=== PATIENT | male | born 1970 | race Caucasian/White ===

== ENCOUNTER 2016-09-19 16:21 | Emergency (ER) | payer MEDICAID ==
[~2016-09-19] VITALS: Ht 182.9 cm; Wt 72.6 kg
[~2016-09-19 16:21] MED LIST: CIPRO 500MG TA500 MG PO; ETODOLAC400 MG PO; FLEXERIL10 MG PO; KEFLEX 500MG.500 MG PO; LORTAB 5/500 501 TAB PO; NAPROXEN SODIU500 MG PO; NOMEDS XX; TAMIFLU 75MG CA75 MG PO; ULTRAM 50 MG TA50 MG PO
--- OUTSIDE RECORDS SUMMARY | 2016-09-19 16:40 | External Medical Summary Rpt ---
Author Author , Organization [employer] Address Unknown Phone Unavailable Care Team Providers Care Shank Tapper Name Role Phone YASMIN ESCOBEDO Unavailable Unavailable MARIA ESTHER YASMIN MAYO, YASMIN Unavailable Unavailable MARIA ESTHER GISSEL RUIZ, GISSEL Unavailable Unavailable SARA RUIZ, GISSEL Unavailable Unavailable [facility] Unavailable Unavailable SERVICE, [facility] Unavailable Unavailable SERVICE, [facility]available Unavailable CONSULTANTS O, [facility], Unavailable Unavailable [facility], Unavailable Unavailable [facility], Unavailable Unavailable [facility] [place]available [place]available [place], [facility] [place] CHAVEZ DEMI, BYRNE DEMI Unavailable Unavailable [facility] Unavailable Unavailable INC, [facility] Unavailable Unavailable [facility]ING [facility], [facility] Unavailable Unavailable SERVICES, [facility] SCIFRES ANG, SCIFRES Unavailable Unavailable ANG SCIFRES ANG, SCIFRES Unavailable Unavailable ANG MARCO MAT, Unavailable Unavailable [facility] Purpose Continuity of Care Document - 06-26-2010 through 2016 Problems Code Diagnosis DOS Provider Status I10 ESSENTIAL 07-04-2016 [facility] HYPERTENSIO INC N J101 FLU D/T OTH 07-04-2016 [facility] VIRUS OT INC RESP MANIFESTATI ONS Z720 TOBACCO USE 07-04-2016 [facility] INC 5290 GLOSSITIS 09-08-2014 YASMIN MAYO V154 PERS HX 09-05-2014 [facility] AL TRAUMA PRS [facility] 4111 INTERMEDIAT 08-19-2014 C[facility] E CORONARY L[place] [facility] [place] 93448 CHEST PAIN 08-18-2014 YASMIN MAYO UNSPECIFIED 3671 MYOPIA 07-04-2014 SCIFRES ANG 4019 UNSPECIFIED 08-28-2013 GISSEL RUIZ ESSENTIAL HYPERTENSIO N 70655 PAIN IN 08-28-2013 [facility] REGION AND THIGH 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 7245 UNSPECIFIED 08-28-2013 [facility] 67295 GENERALIZED 08-28-2013 [facility] 7905 OTHER 08-28-2013 GISSEL RUIZ NONSPECIFIC ABNORMAL SERUM ENZYME LEVELS 7936 NONSPEC ABN 08-28-2013 [place] FINDNG RAD MEDICAL & OTH EXAM IMAGING ASS ABDOMINAL AREA 8054 CLOS FX 08-28-2013 [place] L[facility]B [facility] VERTEBRA IMAGING ASS W/O MENTION SP CORD INJURY 9599 INJURY 08-28-2013 [place] OTHER AND MEDICAL UNSPECIFIED IMAGING ASS UNSPECIFIED SITE E8859 FALL FROM 08-28-2013 GISSEL RUIZ OTHER SLIPPING TRIPPING OR STUMBLING E8889 UNSPECIFIED 08-28-2013 [facility] 44959 CLOSED 07-14-2011 YASMIN MARIA ESTHER FRACTURE OF UNSPECIFIED BONE OF FOOT 9982 ACCIDENTAL 11-03-2010 YASMIN MARIA ESTHER PUNCTURE/LA CERATION DURING PROC NEC 92879 OPEN WOUND 10-15-2010 [facility] WITHOUT SERVICES MENTION COMPLICATIO N 9593 INJURY 10-15-2010 [place] OTHER&UNSPE MEDICAL CIFIED IMAGING ASS [facility]&WRI ST 496 CHRONIC 06-26-2010 [place] AIRWAY MEDICAL OBSTRUCTION IMAGING ASS NEC 45370 PAIN IN 06-26-2010 [place] JOINT, MEDICAL ANKLE AND IMAGING ASS FOOT Medications Na ND Rx Da Fi Fi Am Da Di Ph RX Ph St me C No te ll ll ou ys ag ar # ys at rm s nt no ma ic us Or Da si cy ia de te s n re d AM 00 06 06 1 20 10 EA 22 AR Ac OX 09 -1 -1 .0 94 NO ti -C 32 5 5 00 SI 38 LD ve LA 27 20 20 DE V 53 11 11 RI 87 4 PH CH 5- AR AR 12 MA D 5 CY W MG OF TA BL CY ET NT HI AN A DI 00 06 06 1 40 14 EA 22 AR Ac CL 78 -1 -[address] 94 NO ti OF 11 5- 5 00 SI 37 LD ve EN 78 20 20 DE AC 70 11 11 RI 1 PH CH SO AR AR D MA D DR CY W 50 OF MG CY NT TA HI B AN A MU 45 06 06 1 22 3 EA 22 AR Ac PI 80 -1 -1 .0 94 NO ti RO 20 5 5 00 SI 36 LD ve CI 11 20 20 DE N 22 11 11 RI 2% 2 PH CH AR AR OI MA D NT CY W ME NT OF CY NT HI AN A CI 16 06 06 0 14 7 EA 22 GR Ac WY 71 -1 -[address] 89 AY ti OF 40 0- 0- 00 SI 01 ve LO 65 20 20 DE RO XA 20 11 11 BE CI 4 PH RT N AR B HC MA L CY 50 0 OF MG CY TA NT B HI AN A 00 06 06 0 12 2 EA 22 GR Ac 59 -1 -[address] 89 AY ti 10 0- 0- 00 SI 00 ve 34 20 20 DE RO 90 11 11 BE 1 PH RT AR B MA CY OF CY NT HI AN A Procedures Procedure DOS Code Location Performer Comment ECG 56203 [facility] ROUTINE 5 CULAR MAT ECG CONSULTAN W/LEAST TS O 12 LDS I&R ONLY OPHTH 72287 SCIFRES SCIFRES MEDICAL 5 ANG ANG XM&EVAL COMPRE NEW PT 1/> [place] [address] [place] [facility] ABDOMEN & 4 MEDICAL JASPER PELVIS IMAGING W/O ASS CONTRAST MATERIAL GROUND A0425 [facility]UL[facility] PER SERVICE SERVICE STATUTE MILE AMBULANCE A0429 [facility] SERVICE 4 AMBULANCE AMBULANCE BLS SERVICE SERVICE EMERGENCY TRANSPORT RADIOLOGI 87704 [place] M[facility] C 4 MEDICAL JASPER EXAMINATI IMAGING ON PELVIS ASS 1/2 VIEWS ECG 38477 [facility] ROUTINE 4 BRO BRO ECG W/LEAST 12 LDS I&R ONLY 3D 85838 [facility] 4 MEDICAL JASPER IMAGING W/INTERP& ASS POSTPROC DIFF WORK STATION RADEX HIP 15786 PSYCHIATRIC 4 MEDICAL JASPER UNILATERA IMAGING L ASS COMPLETE MINIMUM 2 VIEWS CLOSURE 8659 [facility] SKIN&SUBC 1 [facility] UTANEOUS INC INC TISSUE OTHER SITES SMPL RPR 71982 [facility] SCALP/NEC 1 EMERGENCY K/AX/ISAAK SERVICES T/TRUNK 12.6-20.0 CM RADEX 15004 [place] [facility] 2 1 [place]ICAL [place] [address] [facility] THERAPY/P INC INC ROPHYLAXI S /DX 1ST TO 1 HR RADIOLOGI 10782 [facility] C 1 MEDICAL JASPER EXAMINATI IMAGING ON CHEST ASS SINGLE VIEW FRONTAL RADEX 66230 [facility] FOOT 1 MEDICAL JASPER COMPLETE IMAGING MINIMUM 3 ASS VIEWS Encounters Encounter Start End Date Code Location Performer Type Date [facility] - 7 7 [facility] OUTPATIEN INC T EMERGENCY 56126 [facility] 7 7 [facility] DEPARTMEN INC T VISIT LOW/MODER SEVERITY OFFICE 00853 YASMIN WATTSEN 5 5 MARIA ESTHER MARIA ESTHER T VISIT 15 MINUTES OFFICE 07296 [facility] 5 5 CULAR MAT T NEW 60 CONSULTAN MINUTES TS O OFFICE 87865 YASMIN WATTSEN 5 5 MARIA ESTHER MARIA ESTHER T VISIT 15 MINUTES EMERGENCY 09113 [facility] DEPT 4 4 BRO BRO VISIT HIGH SEVERITY& THREAT FUNJ OFFICE 22566 YASMIN CABRERA 2 2 MARIA ESTHER MARIA ESTHER T VISIT 15 MINUTES OFFICE 85043 YASMIN CABRERA 1 1 MARIA ESTHER MARIA ESTHER T VISIT 25 MINUTES OFFICE 56268 YASMIN CABRERA 1 1 MARIA ESTHER MARIA ESTHER T NEW 30 MINUTES [facility] - [facility] OUTPATIEN INC T EMERGENCY 37364 [facility] 1 1 [facility] DEPARTMEN INC T VISIT MODERATE SEVERITY EMERGENCY 63313 [facility] 1 1 EMERGENCY DEPARTMEN SERVICES T VISIT HIGH/URGE NT SEVERITY
--- OUTSIDE RECORDS SUMMARY | 2016-09-19 16:40 | External Medical Summary Rpt ---
Author Author , Organization [employer] Address Unknown Phone Unavailable Care Team Providers Care Junior Systems Analyst Name Role Phone YASMIN ESCOBEDO Unavailable Unavailable MARIA ESTHER YASMIN MAYO, YASMIN Unavailable Unavailable MARIA ESTHER GISSEL RUIZ, GISSEL Unavailable Unavailable SARA RUIZ, GISSEL Unavailable Unavailable [facility] Unavailable Unavailable SERVICE, [facility] Unavailable Unavailable SERVICE, [facility]ARDI[facility]ASCULAR Unavailable Unavailable CONSULTANTS O, [facility], Unavailable Unavailable [facility], Unavailable Unavailable [facility], Unavailable Unavailable [facility]IAL [facility] Unavailable Unavailable [place], [facility] [place] CHAVEZ DEMI, BYRNE DEMI Unavailable Unavailable [facility] Unavailable Unavailable INC, [facility] Unavailable Unavailable IM[facility]ING [facility], [facility] Unavailable Unavailable SERVICES, [facility] SCIFRES ANG, SCIFRES Unavailable Unavailable ANG SCIFRES ANG, SCIFRES Unavailable Unavailable ANG MARCO MAT, Unavailable Unavailable [facility] Purpose Continuity of Care Document - 06-26-2010 through 2016 Problems Code Diagnosis DOS Provider Status I10 ESSENTIAL 07-04-2016 [facility] HYPERTENSI[facility] INC N J101 FLU D/T OTH 07-04-2016 [facility] VIRUS OT INC RESP MANIFESTATI ONS Z720 TOBACCO USE 07-04-2016 [facility] 5290 GLOSSITIS 09-08-2014 YASMIN MAYO V154 PERS HX 09-05-2014 DEPT FOR PSYCHOLOGIC PUBLIC [facility] AL TRAUMA PRS [facility] 4111 INTERMEDIAT 08-19-2014 CARDIOVASCU E CORONARY [place] [facility] [place] 73346 CHEST PAIN 08-18-2014 YASMIN MAYO UNSPECIFIED 3671 MYOPIA 07-04-2014 SCIFRES ANG 4019 UNSPECIFIED 08-28-2013 GISSEL RUIZ ESSENTIAL HYPERTENSIO N 92247 PAIN IN 08-28-2013 [place] [facility] REGION AND THIGH 15801 DEGEN 08-28-2013 [place] 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 7245 UNSPECIFIED 08-28-2013 [facility] 34691 GENERALIZED 08-28-2013 [facility] [facility] 7905 OTHER 08-28-2013 GISSEL RUIZ NONSPECIFIC ABNORMAL SERUM ENZYME LEVELS 7936 NONSPEC ABN 08-28-2013 [place] FINDNG RAD MEDICAL & OTH EXAM IMAGING ASS ABDOMINAL AREA 8054 CLOS FX 08-28-2013 [place] L[facility] VERTEBRA IM[facility]ING ASS W/O MENTION SP CORD INJURY 9599 INJURY 08-28-2013 [place] OTHER AND MEDICAL UNSPECIFIED IMAGING ASS UNSPECIFIED SITE E8859 FALL FROM 08-28-2013 GISSEL RUIZ OTHER SLIPPING TRIPPING OR STUMBLING E8889 UNSPECIFIED 08-28-2013 [facility] 53315 CLOSED 07-14-2011 YASMIN MARIA ESTHER FRACTURE OF UNSPECIFIED BONE OF FOOT 9982 ACCIDENTAL 11-03-2010 YASMIN MARIA ESTHER PUNCTURE/LA CERATION DURING [place] NEC 84733 OPEN WOUND 10-15-2010 [facility] WITHOUT SERVICES MENTION COMPLICATIO N 9593 INJURY 10-15-2010 [place] OTHER&UNSPE MEDICAL CIFIED IMAGING ASS [facility]&WRI ST 496 CHRONIC 06-26-2010 [place] AIRWAY MEDICAL OBSTRUCTION IMAGING ASS NEC 46400 PAIN IN 06-26-2010 [place] JOINT, MEDICAL ANKLE AND IMAGING ASS FOOT [...] 0 14 7 EA 22 GR Ac ID [id number] -[address] 89 AY [...] Procedure DOS Code Location Performer Comment ECG 95401 [facility] ROUTINE 5 CULAR MAT ECG CONSULTAN W/LEAST TS O 12 LDS I&R ONLY OPHTH 68712 SCIFRES SCIFRES MEDICAL 5 ANG ANG XM&EVAL COMPRE NEW PT 1/> V[place] [address] [place] [facility]IS ABDOMEN & 4 MEDICAL JASPER PELVIS IMAGING W/O ASS CONTRAST MATERIAL GROUND A0425 [facility]EAGE 4 AMBULANCE AMBULANCE PER SERVICE SERVICE STATUTE MILE AMBULANCE A0429 [facility] SERVICE 4 AMBULANCE AMBULANCE BLS SERVICE SERVICE EMERGENCY TRANSPORT RADIOLOGI 62296 [place] MIS C 4 MEDICAL JASPER EXAMINATI IMAGING ON PELVIS ASS 1/2 VIEWS ECG 52683 [facility] ROUTINE 4 BRO BRO ECG W/LEAST 12 LDS I&R ONLY 3D 45608 [facility] RENDERING 4 MEDICAL JASPER IMAGING W/INTERP& ASS POSTPROC DIFF WORK STATION RADEX HIP 40279 [facility] 4 MEDICAL JASPER UNILATERA IMAGING L ASS COMPLETE MINIMUM 2 VIEWS CLOSURE 8659 [facility] SKIN&SUBC 1 [facility] UTANEOUS INC INC TISSUE OTHER SITES SMPL RPR 86813 [facility] SCALP/NEC 1 EMERGENCY K/AX/ISAAK SERVICES T/TRUNK 12.6-20.0 CM RADEX 03299 [place] [facility] 2 1 [place]ICAL [place] [address] [facility] THERAPY/P INC INC ROPHYLAXI S /DX 1ST TO 1 HR RADIOLOGI 29881 [facility] C 1 MEDICAL JASPER EXAMINATI IMAGING ON CHEST ASS SINGLE VIEW FRONTAL RADEX 31929 [facility] FOOT 1 MEDICAL JASPER COMPLETE IMAGING MINIMUM 3 ASS VIEWS Encounters Encounter Start End Date Code Location Performer Type Date [facility] - 7 7 [facility] OUTPATIEN INC T EMERGENCY 70968 [facility] 7 7 [facility] DEPARTMEN INC T VISIT LOW/MODER SEVERITY OFFICE 79596 YASMIN WATTSEN 5 5 MARIA ESTHER MARIA ESTHER T VISIT 15 MINUTES OFFICE 25486 [facility] 5 5 CULAR MAT T NEW 60 CONSULTAN MINUTES TS O OFFICE 33485 YASMIN WATTSEN 5 5 MARIA ESTHER MARIA ESTHER T VISIT 15 MINUTES EMERGENCY 13260 [facility] DEPT 4 4 BRO BRO VISIT HIGH SEVERITY& THREAT FUNJ OFFICE 03645 YASMIN CABRERA 2 2 MARIA ESTHER MARIA ESTHER T VISIT 15 MINUTES OFFICE 93984 YASMIN CABRERA 1 1 MARIA ESTHER MARIA ESTHER T VISIT 25 MINUTES OFFICE 96923 YASMIN CABRERA 1 1 MARIA ESTHER MARIA ESTHER T NEW 30 MINUTES [facility]OSPITAL [facility] - 1 1 [facility] OUTPATIEN INC T EMERGENCY 42378 [facility] 1 1 [facility] DEPARTMEN INC T VISIT MODERATE SEVERITY EMERGENCY 48888 [facility] 1 1 EMERGENCY DEPARTMEN SERVICES T VISIT HIGH/URGE NT SEVERITY
--- OUTSIDE RECORDS SUMMARY | 2016-09-19 16:41 | External Medical Summary Rpt ---
Demographics Preferred Language Barbadian Marital Status Unknown Evangelical Affiliation Unknown Race Unknown Ethnic Group Unknown Author Author , Organization [employer] Address Unknown Phone Unavailable Purpose Continuity of Care Document - through 2016 Immunization No patient found.
--- OUTSIDE RECORDS SUMMARY | 2016-09-19 16:41 | External Medical Summary Rpt ---
Author Author [employer] [facility], [employer] Organization [employer] Address Unknown Phone Unavailable
--- OUTSIDE RECORDS SUMMARY | 2016-09-19 16:41 | External Medical Summary Rpt ---
Author Author , Organization [employer] Address Unknown Phone Unavailable Care Team Providers Care Billet Straightener Name Role Phone YASMIN ESCOBEDO Unavailable Unavailable MARIA ESTHER YASMIN ESCOBEDO Unavailable Unavailable MARIA ESTHER [facility]QUE[facility] Unavailable Unavailable [facility] GLEZ Unavailable Unavailable [facility] Unavailable Unavailable SERVICE, [facility] Unavailable Unavailable SERVICE, [facility]ULAR Unavailable Unavailable CONSULTANTS O, [facility], Unavailable Unavailable [facility], Unavailable Unavailable [facility] PUBLIC [facility] DEPT FOR [facility]IAL [facility], Unavailable Unavailable DEPT FOR SOCIAL SR[facility] Unavailable Unavailable [place], [facility] [place] CHAVEZ DEMI, CHAVEZ DEMI Unavailable Unavailable [facility] Unavailable Unavailable INC, [facility] Unavailable Unavailable IMAGING [facility], [facility] Unavailable Unavailable SERVICES, [facility] SCIFRES ANG, SCIFRES Unavailable Unavailable ANG SCIFRES ANG, SCIFRES Unavailable Unavailable ANG MARCO MAT, Unavailable Unavailable [facility] Purpose Continuity of Care Document - 06-26-2010 through 2016 Problems Code Diagnosis DOS Provider Status I10 ESSENTIAL 07-04-2016 [facility] HYPERTENSI[facility] INC N J101 FLU D/T OTH 07-04-2016 [place] ID [facility]U [facility] VIRUS OT INC RESP MANIFESTATI ONS Z720 TOBACCO USE 07-04-2016 [facility] INC 5290 GLOSSITIS 09-08-2014 YASMIN MAYO V154 PERS HX 09-05-2014 DEPT FOR PSYCHOLOGIC PUBLIC HLTH AL TRAUMA PRS [facility] 4111 INTERMEDIAT 08-19-2014 CARDIOVASCU E CORONARY L[place] [facility] O 57566 CHEST PAIN 08-18-2014 YASMIN MAYO UNSPECIFIED 3671 MYOPIA 07-04-2014 SCIFRES ANG 4019 UNSPECIFIED 08-28-2013 GISSEL RUIZ ESSENTIAL HYPERTENSIO N 68138 PAIN IN 08-28-2013 [facility] REGION AND THIGH 00050 DEGEN 08-28-2013 [place] 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 7245 UNSPECIFIED 08-28-2013 [facility] 02908 GENERALIZED 08-28-2013 [facility] [facility] 7905 OTHER 08-28-2013 GISSEL RUIZ NONSPECIFIC ABNORMAL SERUM ENZYME LEVELS 7936 NONSPEC ABN 08-28-2013 [place] FINDNG RAD MEDICAL & OTH EXAM IMAGING ASS ABDOMINAL AREA 8054 CLOS FX 08-28-2013 [place] LUM[facility] VERTEBRA IM[facility]ING ASS W/O MENTION SP CORD INJURY 9599 INJURY 08-28-2013 [place] OTHER AND MEDICAL UNSPECIFIED IMAGING ASS UNSPECIFIED SITE E8859 FALL FROM 08-28-2013 GISSEL RUIZ OTHER SLIPPING TRIPPING OR STUMBLING E8889 UNSPECIFIED 08-28-2013 [facility] [facility] 95552 CLOSED 07-14-2011 YASMIN MARIA ESTHER FRACTURE OF UNSPECIFIED BONE OF FOOT 9982 ACCIDENTAL 11-03-2010 YASMIN MARIA ESTHER PUNCTURE/LA CERATION DURING PROC NEC 95337 OPEN WOUND 10-15-2010 [facility] WITHOUT SERVICES MENTION COMPLICATIO N 9593 INJURY 10-15-2010 [place] OTHER&UNSPE MEDICAL CIFIED IMAGING ASS [facility]&WRI ST 496 CHRONIC 06-26-2010 [place] AIRWAY MEDICAL OBSTRUCTION IMAGING ASS [place] 84844 PAIN IN 06-26-2010 [place] JOINT, MEDICAL ANKLE AND IMAGING ASS FOOT Medications Na ND Rx Da Fi Fi Am Da Di Ph RX Ph St me C No te ll ll ou ys ag ar # ys at rm s nt no ma ic us Or Da si cy ia de te s n re d MU 45 06 06 1 22 3 EA 22 AR Ac PI 80 -1 -[address] 94 NO ti RO 20 5 5 00 SI 36 LD ve CI 11 20 20 DE N 22 11 11 RI 2% 2 PH CH AR AR OI MA D NT CY W ME NT OF CY NT HI AN A DI 00 06 06 1 40 14 EA 22 AR Ac CL 78 -1 -[address] 94 NO ti OF 11 00 SI 37 LD ve EN 78 20 20 DE AC 70 11 11 RI 1 PH CH SO AR AR D MA D DR CY W 50 OF MG CY NT TA HI B AN A AM 00 06 06 1 20 10 EA 22 AR Ac OX 09 -1 -[address] 94 NO ti -C 32 5 SI 38 LD ve LA 27 20 20 DE V 53 11 11 RI 87 4 PH CH 5- AR AR 12 MA D 5 CY W MG OF TA BL CY ET NT HI AN A 00 06 06 0 12 2 EA 22 GR Ac 59 -1 -[address] 89 AY ti 10 0- 0- 00 SI 00 ve 34 20 20 DE RO 90 11 11 BE 1 PH RT AR B MA CY OF CY NT HI AN A CI 16 06 06 0 14 7 EA 22 GR Ac DE 71 -1 -[address] 89 AY ti OF 40 0- 0- 00 SI 01 ve LO 65 20 20 DE RO XA 20 11 11 BE CI 4 PH RT N AR B HC MA L CY 50 0 OF MG CY TA NT B HI AN A Procedures Procedure DOS Code Location Performer Comment ECG 80515 [facility] ROUTINE 5 CULAR MAT ECG CONSULTAN W/LEAST TS O 12 LDS I&R ONLY OPHTH 02130 SCIFRES SCIFRES MEDICAL 5 ANG ANG XM&EVAL COMPRE NEW PT 1/> VST RADEX HIP 34566 [facility] 4 MEDICAL JASPER UNILATERA IMAGING L ASS COMPLETE MINIMUM [address] [facility] ROUTINE 4 BRO BRO ECG W/LEAST 12 LDS I&R ONLY 3D 05050 [facility] RENDERING 4 MEDICAL JASPER IMAGING W/INTERP& ASS POSTPROC DIFF WORK STATION RADIOLOGI 56434 [facility] C 4 MEDICAL JASPER EXAMINATI IMAGING ON PELVIS ASS 1/2 VIEWS GROUND A0425 [facility] 4 AMBULANCE AMBULANCE PER SERVICE SERVICE STATUTE MILE AMBULANCE A0429 [facility] SERVICE 4 AMBULANCE AMBULANCE BLS [place] [address] [facility] & 4 MEDICAL JASPER PELVIS IMAGING W/O ASS CONTRAST MATERIAL CLOSURE 8659 [facility] SKIN&SUBC 1 [facility] [place] [address] [facility] INF[facility]ION [facility] THERAPY/P INC INC ROPHYLAXI S /DX 1ST TO 1 HR SMPL RPR 32702 [facility] SCALP/NEC 1 EMERGENCY K/AX/ISAAK SERVICES T/TRUNK 12.6-20.0 CM RADEX 07049 [facility] 2 1 MEDICAL JASPER VIEWS IMAGING ASS RADEX 41280 [facility] FOOT 1 MEDICAL JASPER COMPLETE IMAGING MINIMUM 3 ASS VIEWS RADIOLOGI 63126 [facility] C 1 MEDICAL JASPER EXAMINATI IMAGING ON CHEST ASS SINGLE VIEW FRONTAL Encounters Encounter Start End Date Code Location Performer Type Date [facility] - 7 7 [facility] OUTPATIEN INC T EMERGENCY 88295 [facility] 7 7 [facility] INC T VISIT LOW/MODER SEVERITY OFFICE 06204 YASMIN CABRERA 5 5 MARIA ESTHER MARIA ESTHER T VISIT 15 MINUTES OFFICE 71914 [facility]IKEN[facility]ATTA 5 5 CULAR MAT T NEW 60 CONSULTAN MINUTES TS O OFFICE 77176 YASMIN CABRERA 5 5 MARIA ESTHER MARIA ESTHER T VISIT [address] [facility] DEPT 4 4 BRO BRO VISIT HIGH SEVERITY& THREAT FUNCJ OFFICE 70806 YASMIN CABRERA 2 2 MARIA ESTHER MARIA ESTHER T VISIT 15 MINUTES OFFICE 16128 YASMIN CABRERA 1 1 MARIA ESTHER MARIA ESTHER T VISIT 25 MINUTES OFFICE 01252 YASMIN CABRERA 1 1 MARIA ESTHER MARIA ESTHER T NEW 30 MINUTES EMERGENCY 05394 [facility] 1 1 EMERGENCY DEPARTMEN SERVICES T VISIT HIGH/URGE NT SEVERITY EMERGENCY 02049 [facility] 1 1 [facility] INC T VISIT MODERATE SEVERITY [facility]OSPITAL [facility] - 1 1 [facility] INC T
--- OUTSIDE RECORDS SUMMARY | 2016-09-19 16:41 | External Medical Summary Rpt ---
Author Author , Organization [employer] Address Unknown Phone Unavailable Care Team Providers Care Inventory Technician Name Role Phone YASMIN ESCOBEDO Unavailable Unavailable MARIA ESTHER YASMIN ESCOBEDO Unavailable Unavailable MARIA ESTHER GISSEL VELASQUEZ Unavailable Unavailable GISSEL GLEZ Unavailable Unavailable [facility] Unavailable Unavailable SERVICE, [facility] Unavailable Unavailable SERVICE, [facility] Unavailable Unavailable CON[facility]ULTANTS [facility], [facility], Unavailable Unavailable [facility], Unavailable Unavailable [facility], Unavailable Unavailable [facility] Unavailable [place]available [place], [facility] [place] CHAVEZ DEMI, CHAVEZ DEMI Unavailable Unavailable [facility] Unavailable Unavailable [facility], [facility] Un[facility], [facility] Unavailable Unavailable SERVICES, [facility] SCIFRES ANG, SCIFRES Unavailable Unavailable ANG SCIFRES ANG, SCIFRES Unavailable Unavailable ANG [facility], Unavailable Unavailable [facility] Purpose Continuity of Care Document - 06-26-2010 through 2016 Problems Code Diagnosis DOS Provider Status I10 ESSENTIAL 07-04-2016 [facility] HYPERTENSIO INC N J101 FLU D/T OTH 07-04-2016 [facility] VIRUS OT INC RESP MANIFESTATI ONS Z720 TOBACCO USE 07-04-2016 [facility] 5290 GLOSSITIS 09-08-2014 YASMIN MAYO V154 PERS HX 09-05-2014 [facility] TRAUMA PRS [facility] 4111 INTERMEDIAT 08-19-2014 [facility] CORONARY [place] [place] 12585 CHEST PAIN 08-18-2014 YASMIN MAYO UNSPECIFIED 3671 MYOPIA 07-04-2014 SCIFRES ANG 4019 UNSPECIFIED 08-28-2013 GISSEL RUIZ ESSENTIAL HYPERTENSIO N 80022 PAIN IN 08-28-2013 [facility] REGION AND THIGH 67039 DEGEN 08-28-2013 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 7245 UNSPECIFIED 08-28-2013 [facility] 16409 GENERALIZED 08-28-2013 [facility] 7905 OTHER 08-28-2013 GISSEL RUIZ NONSPECIFIC ABNORMAL SERUM ENZYME LEVELS 7936 NONSPEC ABN 08-28-2013 [facility] OTH EXAM [facility] ABDOMINAL AREA 8054 CLOS FX 08-28-2013 [facility] VERTEBRA [facility] W/O MENTION SP CORD INJURY 9599 INJURY 08-28-2013 [facility] OTHER AND MEDICAL UNSPECIFIED IM[facility]ING ASS UNSPECIFIED SITE E8859 FALL FROM 08-28-2013 GISSEL RUIZ OTHER SLIPPING TRIPPING OR STUMBLING E8889 UNSPECIFIED 08-28-2013 [facility] 55522 CLOSED 07-14-2011 YASMIN MARIA ESTHER FRACTURE OF UNSPECIFIED BONE OF FOOT 9982 ACCIDENTAL 11-03-2010 YASMIN MARIA ESTHER PUNCTURE/LA CERATION DURING PROC NEC 97299 OPEN WOUND 10-15-2010 [facility] WITHOUT SERVICES MENTION COMPLICATIO N 9593 INJURY 10-15-2010 [facility] OTHER&UNSPE MEDICAL CIFIED IMAGING ASS [facility] FOREARM&WRI ST 496 CHRONIC 06-26-2010 [facility] AIR[facility]AY [facility] OBSTRUCTION IMAGING ASS NEC 46811 PAIN IN 06-26-2010 [facility], MEDICAL ANKLE AND IM[facility]ING [facility] FOOT [...] 0 14 7 EA 22 GR Ac VA 71 -1 -[address] 89 AY ti OF 40 0- 0- 00 SI 01 ve LO 65 20 20 DE RO XA 20 11 11 BE CI 4 PH RT N AR B HC MA L CY 50 0 OF MG CY TA NT B HI AN A Procedures Procedure DOS Code Location Performer Comment ECG 74438 [facility] ROUTINE 5 CULAR MAT ECG CONSULTAN W/LEAST TS O 12 LDS I&R ONLY OPHTH 57135 [facility] SC[facility] MEDICAL 5 ANG ANG XM&EVAL COMPRE NEW PT 1/> VST RADEX HIP 30434 [facility] 4 MEDICAL JASPER UNILATERA IMAGING L ASS COMPLETE MINIMUM 2 VIEWS ECG 39823 [facility] ROUTINE 4 BRO BRO ECG W/LEAST 12 LDS I&R ONLY 3D 49282 [facility] RENDERING 4 MEDICAL JASPER IMAGING W/INTERP& ASS POSTPROC DIFF WORK STATION RADIOLOGI 85618 [facility] C 4 MEDICAL JASPER EXAMINATI IMAGING ON PELVIS ASS 1/2 VIEWS GROUND A0425 [facility] 4 AMBULANCE AMBULANCE PER SERVICE SERVICE STATUTE MILE AMBULANCE A0429 [facility] SERVICE 4 AMBULANCE AMBULANCE BLS [place] [address] [facility] MEDICAL JAS[facility] PELVIS IMAGING W/O ASS CONTRAST MATERIAL CLOSURE 8659 [facility] SKIN&SUBC 1 [facility] [place] [address] [facility] INFUSION 1 [facility] THERAPY/P INC INC ROPHYLAXI S /DX 1ST TO 1 HR SMPL RPR 78051 [facility] SCALP/NEC 1 EMERGENCY K/AX/ISAAK SERVICES T/TRUNK 12.6-20.0 CM RADEX 86570 [facility] 2 1 MEDICAL JASPER VIEWS IMAGING ASS RADEX 42601 [facility] FOOT 1 MEDICAL JASPER COMPLETE IMAGING MINIMUM 3 ASS VIEWS RADIOLOGI 72808 [facility] C 1 MEDICAL JASPER EXAMINATI IMAGING ON CHEST ASS SINGLE VIEW FRONTAL Encounters Encounter Start End Date Code Location Performer Type Date [facility] - 7 7 [facility] OUTPATIEN INC T EMERGENCY 88653 [facility] 7 7 [facility] T VISIT LOW/MODER SEVERITY OFFICE 26767 YASMIN CABRERA 5 5 MARIA ESTHER MARIA ESTHER T VISIT 15 MINUTES OFFICE 18255 [facility]IKEN[facility] 5 5 CULAR MAT T NEW 60 CONSULTAN MINUTES TS O OFFICE 39583 YASMIN CABRERA 5 5 MARIA ESTHER MARIA ESTHER T VISIT 15 MINUTES EMERGENCY 17402 [facility] DEPT 4 4 BRO BRO VISIT HIGH SEVERITY& THREAT FUNCJ OFFICE 64957 YASMIN CABRERA 2 2 MARIA ESTHER MARIA ESTHER T VISIT 15 MINUTES OFFICE 27302 YASMIN CABRERA 1 1 MARIA ESTHER MARIA ESTHER T VISIT 25 MINUTES OFFICE 70229 YASMIN CABRERA 1 1 MARIA ESTHER MARIA ESTHER T NEW 30 MINUTES EMERGENCY 13318 [facility] 1 1 EMERGENCY DEPARTMEN SERVICES T VISIT HIGH/URGE NT SEVERITY EMERGENCY 90446 [facility] 1 1 [facility] T VISIT MODERATE SEVERITY HOSPITAL [facility] - 1 1 [facility] OUTPATIEN INC T
--- OUTSIDE RECORDS SUMMARY | 2016-09-19 16:41 | External Medical Summary Rpt ---
Demographics Preferred Language Zimbabwean Marital Status Unknown Yarsanism Affiliation Unknown Race Unknown Ethnic Group Unknown Author Author , Organization [employer] Address Unknown Phone Unavailable Purpose Continuity of Care Document - through 2016 Immunization No patient found.
[2016-09-19 17:49] VITALS: BP 118/68
--- NOTE | 2016-09-19 17:52 | Emergency Room Report ---
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 N Clinical Suspician of Infection? N Mental Status: 1 - Regular (Normal Baseline) Sepsis Risk:Low Sepsis Risk Have you (or family members/close friends) recently traveled outside the [place]? N If Yes, where/when: Have you had exposure to infectious disease within the past month? TB? Other? Specify: Source patient, RN notes reviewed, RN/MD Exam Limitations no limitations Comment This is a 46-year-old gentleman presenting to the emergency room with RIGHT chest wall pain, pleuritic in nature, onset just half an hour prior to arrival, while walking upstairs. Patient describes discomfort as a "catch", worse with deep inspiration, worse with palpation of the anterior chest wall. Patient has any shortness of breath, diaphoresis, radiation of chest discomfort. The patient has a strong alcohol odor in his breath. He is here with his landlord. ALLERGIES Coded Allergies: No Known Allergies (09/19/16) Home Medications Active Scripts Oseltamivir Phosphate (Tamiflu 75MG Capsule) 75 MG PO BID #10 CAP Prov: 07/04/16 History Medical History General CAD? No Angina: Yes [place]: No Hypertension? Yes Hyperlipidemia? No CHF? No DVT? No PE? No COPD? No Asthma? No Anemia? No GERD? No Gastric ulcers? No GI Bleed? No Hernia? No Thyroid Problems? No Hypothyroidism? No CVA? No Seizures? No Diabetes? No Renal Insuffiency? No End Stage Renal Disease? No UTI? No Stones? No BPH? No GB Disease: No Nephritic Syndrome? No Asplenia? No Hepatitis? No Sickle Cell Disease? No Arthritis? No Migraines? No Cataracts? No Glaucoma? No MRSA? No HIV? No TB? No Anxiety? No Depression? No Cancer? No More? No Immunization Hx Ped.Immunizations UTD Yes DT/Tetanus 10/15/10 Surgical Hx Previous Surgery?Y Appendix Social History Smoking Hx Smoker: Current Every Day Smoker Tobacco: Yes Type Cigarettes Packs/day 2 1/2 - 3 Packs Alcohol Alcohol: Yes Review of Systems All Other Systems Reviewed and Negative Cardiovascular chest pain (RIGHT chest wall) Physical Exam Vital Signs Vital Signs Date Time Temp Pulse Resp B/P Pulse O2 O2 Flow FiO2 Ox Delivery Rate 09/19 1749 97.9 98 18 118/68 97 09/19 1654 97.9 98 18 118/68 97 09/19 1631 97.9 98 18 118/68 97 General Appearance normal appearance, WD/WN, no apparent distress, strong alcohol odor in his breath Respiratory Status Yes: trachea midline, chest symmetrical, tender on palpation (RIGHT chest wall). No: respiratory distress. Lung Sounds bilateral: normal breath sounds, lungs clear. 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 No Comment On reevaluation patient is make her stable, asymptomatic, denies any further complaints. He is explicitly stated that he has no chest pain at this time. He has refused any blood 6, any blood draws, he wants to go home, prior to completion of his workup, as ordered initially. He'll be discharged home AGAINST MEDICAL ADVICE, aware of possible complications associated with any completed workup. He stated that he will follow-up with his PCP in the morning, for mandatory reevaluation and further studies. Based on his preliminary/incomplete workup he appears to be having pleuritic features, of his chest pain. 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 of ischemic chgs, no ectopy, normal QRS, normal VT, normal EKG, no EKG for comparison, non-spec. ST/Twave chgs, ST elevation, ST depression, LBBB, RBBB, ectopy, abnormal Q waves XRAY/CT/US XRAY/CT/US XRAY chest XR interpretation by reviewed by me, discussed w/radiologist Xray Results no infiltrates, normal heart size, normal lung inflation bill, old rib fractures Departure Departure Time of Disposition 174 Disposition Against Medical Advice Clinical Impression Primary Impression: Left against medical advice Condition STABLE Referrals Mike CRUZ,Dae Mayorga: Tomorrow-Call Office if not better Patient Instructions DI for Chest Pain Additional Instructions Please return to this emergency room at any time, for any concerns. Follow-up with your PCP in the morning, for mandatory reevaluation. Discharge Counseling Counseled pt/family regarding diagnosis, test results, medications/RX, home care, follow up needs Comment Please return to this emergency room at any time, for any concerns. Follow-up with your PCP in the morning, for mandatory reevaluation. ED Critical Care Critical Care No at 1811
--- NOTE | 2016-09-19 17:52 | Emergency Room Report ---
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 N Clinical Suspician of Infection? N Mental Status: 1 - Regular (Normal Baseline) Sepsis Risk:Low Sepsis Risk Have you (or family members/close friends) recently traveled outside the [place]? N If Yes, where/when: Have you had exposure to infectious disease within the past month? TB? Other? Specify: Source patient, RN notes reviewed, RN/MD Exam Limitations no limitations Comment This is a 46-year-old gentleman presenting to the emergency room with RIGHT chest wall pain, pleuritic in nature, onset just half an hour prior to arrival, while walking upstairs. Patient describes discomfort as a "catch", worse with deep inspiration, worse with palpation of the anterior chest wall. Patient has any shortness of breath, diaphoresis, radiation of chest discomfort. The patient has a strong alcohol odor in his breath. He is here with his landlord. ALLERGIES Coded Allergies: No Known Allergies (09/19/16) Home Medications Active Scripts Oseltamivir Phosphate (Tamiflu 75MG Capsule) 75 MG PO BID #10 CAP Prov: 07/04/16 History Medical History General CAD? No Angina: Yes [place]: No Hypertension? Yes Hyperlipidemia? No CHF? No DVT? No PE? No COPD? No Asthma? No Anemia? No GERD? No Gastric ulcers? No GI Bleed? No Hernia? No Thyroid Problems? No Hypothyroidism? No CVA? No Seizures? No Diabetes? No Renal Insuffiency? No End Stage Renal Disease? No UTI? No Stones? No BPH? No GB Disease: No Nephritic Syndrome? No Asplenia? No Hepatitis? No Sickle Cell Disease? No Arthritis? No Migraines? No Cataracts? No Glaucoma? No MRSA? No HIV? No TB? No Anxiety? No Depression? No Cancer? No More? No Immunization Hx Ped.Immunizations UTD Yes DT/Tetanus 10/15/10 Surgical Hx Previous Surgery?Y Appendix Social History Smoking Hx Smoker: Current Every Day Smoker Tobacco: Yes Type Cigarettes Packs/day 2 1/2 - 3 Packs Alcohol Alcohol: Yes Review of Systems All Other Systems Reviewed and Negative Cardiovascular chest pain (RIGHT chest wall) Physical Exam Vital Signs Vital Signs Date Time Temp Pulse Resp B/P Pulse O2 O2 Flow FiO2 Ox Delivery Rate 09/19 1749 97.9 98 18 118/68 97 09/19 1654 97.9 98 18 118/68 97 09/19 1631 97.9 98 18 118/68 97 General Appearance normal appearance, WD/WN, no apparent distress, strong alcohol odor in his breath Respiratory Status Yes: trachea midline, chest symmetrical, tender on palpation (RIGHT chest wall). No: respiratory distress. Lung Sounds bilateral: normal breath sounds, lungs clear. 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 No Comment On reevaluation patient is make her stable, asymptomatic, denies any further complaints. He is explicitly stated that he has no chest pain at this time. He has refused any blood 6, any blood draws, he wants to go home, prior to completion of his workup, as ordered initially. He'll be discharged home AGAINST MEDICAL ADVICE, aware of possible complications associated with any completed workup. He stated that he will follow-up with his PCP in the morning, for mandatory reevaluation and further studies. Based on his preliminary/incomplete workup he appears to be having pleuritic features, of his chest pain. 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 of ischemic chgs, no ectopy, normal QRS, normal ID, normal EKG, no EKG for comparison, non-spec. ST/Twave chgs, ST elevation, ST depression, LBBB, RBBB, ectopy, abnormal Q waves XRAY/CT/US XRAY/CT/US XRAY chest XR interpretation by reviewed by me, discussed w/radiologist Xray Results no infiltrates, normal heart size, normal lung inflation bill, old rib fractures Departure Departure Time of Disposition 174 Disposition Against Medical Advice Clinical Impression Primary Impression: Left against medical advice Condition STABLE Referrals Mike CRUZ,Dae Mayorga: Tomorrow-Call Office if not better Patient Instructions DI for Chest Pain Additional Instructions Please return to this emergency room at any time, for any concerns. Follow-up with your PCP in the morning, for mandatory reevaluation. Discharge Counseling Counseled pt/family regarding diagnosis, test results, medications/RX, home care, follow up needs Comment Please return to this emergency room at any time, for any concerns. Follow-up with your PCP in the morning, for mandatory reevaluation. ED Critical Care Critical Care No at 1811
--- NOTE | 2016-09-19 18:59 | RADIOLOGY REPORT PS360 ---
CHEST(2 VIEWS-NOT PORTABLE) Ordering Physician: Juan Dempsey MD Patient Age: 46 years: Male HISTORY: pain pain right chest TECHNIQUE: 2 view PA and lateral chest COMPARISON 10/22/2015 CXR FINDINGS Right chest: Regarding right chest pain the right lung is well expanded and clear with no pneumothorax. No effusion. No obvious rib fractures. T-spine intact. Heart kassandra and mediastinal structures unremarkable. Left chest: Old left seventh rib fracture is again noted with prominent bone formation about this healing fracture. There is also healing eighth rib fracture with less evident reactive bone There is also a curious density projected over the anterior fifth rib. This measures up to 11 mm. I cannot exclude a healing posterior or anterior rib fracture given the multiple injuries but it does not clearly correlate with such. I would recommend a follow-up PA chest with shallow obliques in 4-6 weeks to further evaluate The prior CT chest from 2015 the patient did show anterior left sixth rib fracture and multiple posterior rib fractures IMPRESSION: --------- Right chest. Unremarkable.. No acute findings in the right Left chest. Irregular prominent density from the healing left seventh rib fracture. Exuberant Healing Also a healing left eighth rib fractures noted Focal 12 mm density at lower left chest-projected over the posterior 10th rib, & anterior fifth rib.. Question early Related to a healing rib fracture although does not correlate precisely with previous evident fractures from CT October 2015. Period Recommend a follow-up PA chest with shallow obliques to again evaluate in in 4-6 weeks
== END 2016-09-19 17:50 | disposition left against medical advice (07) ==
LOC: UTC 16:21 → ER 16:21 → UTC 16:37 → ER 16:37
DX: R07.89 Other chest pain (principal)